=== PATIENT | female | born 1965 | race Caucasian/White ===

== ENCOUNTER → 2017-04-20 | Outpatient (CLI) | payer BC ==
--- NOTE | 2017-04-20 15:22 | RAD ---
DATE: 04/20/2017 EXAM: DIGITAL DIAGNOSTIC BILATERAL, BREAST LEFT HISTORY: Palpable nodule left breast 2 to 3:00 position since last week. Bilateral breast tenderness. COMPARISON: 05/22/2016 This study was interpreted with the benefit of Computerized Aided Detection (CAD). FINDINGS: Digital MLO and CC mammograms of both breasts were obtained. Comparison study is dated 05/22/2016. A radiopaque marker was placed in the upper outer quadrant of the left breast in the area where the patient feels a palpable abnormality. The breast parenchyma is heterogeneously dense which can obscure a lesion on mammography (breast density code C). No spiculated mass is seen. No malignant appearing calcification or area of architectural distortion is noted. Benign-appearing calcifications are seen within both breasts. On mammography in the area where the patient feels a palpable abnormality dense breast parenchyma is seen. A real-time ultrasound examination of this area was performed. Several simple cysts are seen scattered throughout the upper outer quadrant of the left breast from the 2 to 4:00 position. These measure 5 mm to 1 cm in size. No solid mass is seen. The larger simple cysts appear to correspond to the patient's palpable abnormality. IMPRESSION: BI-RADS Category 2 benign findings. There is no mammographic evidence of malignancy. Routine yearly screening mammography is recommended for follow-up. BI-RADS CATEGORY: 2 BENIGN FINDING(S) RECOMMENDED FOLLOW-UP: 12M 12 MONTH FOLLOW-UP PQRS compliance statement: Patient information was entered into a reminder system with a target due date 04/20/2018 for the next mammogram. Mammography is a sensitive method for finding small breast cancers, but it does not detect them all and is not a substitute for careful clinical examination. A negative mammogram does not negate a clinically suspicious finding and should not result in delay in biopsying a clinically suspicious abnormality. "Our facility is accredited by the [employer] Mammography Program."
== END | disposition home or self-care (01) ==
LOC: MAMMO 12:36
PROVIDERS: ATTEND Physician Assistant Medical
DX: N63 Unspecified lump in breast (principal)
CPT/HCPCS: 76641; G0204; 77066

== ENCOUNTER 2018-01-04 09:17 | Emergency (ER) | payer BC ==
[2018-01-04 09:48] LABS: BASO # 0.1 x10^3/uL (0.0-0.2); BASO % 1 % (0-3); EOS # 0.1 x10^3/uL (0.0-0.7); EOS % 1 % (0-3); HEMATOCRIT 43.6 % (36.0-47.0); HEMOGLOBIN 14.6 g/dL (12.0-15.5); LYMPH # 2.3 x10^3/uL (1.0-4.8); LYMPH % 32 % (24-48); MEAN CORPUSCULAR HEMOGLOBIN 31 pg (25-35); MEAN CORPUSCULAR HGB CONC 34 g/dL (31-37); MEAN CORPUSCULAR VOLUME 92 fL (79-100); MONO # 0.4 x10^3/uL (0.0-1.1); MONO % 6 % (0-9); NEUT # 4.3 x10^3uL (1.8-7.7); NEUT % 60 % (31-73); PLATELET COUNT 250 x10^3/uL (140-400); RED BLOOD COUNT 4.76 x10^6/uL (3.50-5.40); RED CELL DISTRIBUTION WIDTH 13.8 % (11.5-14.5); WHITE BLOOD COUNT 7.2 x10^3/uL (4.0-11.0)
[2018-01-04] MEDS ORDERED: ASPI325T8 PO (09:49)
--- NOTE | 2018-01-04 09:57 | RAD ---
EXAM: CHEST 1 VIEW History: Chest pain COMPARISON: None available TECHNIQUE: Single portable radiograph of the chest FINDINGS: The cardiac silhouette is unremarkable. Scattered calcified granulomas identified in the right lung base. The costophrenic sulci are clear and well demarcated. IMPRESSION: No radiographic evidence of an acute cardiopulmonary process.
[2018-01-04 10:06] LABS: ALBUMIN/GLOBULIN RATIO 1.1 (1.0-1.7); CREATININE 0.8 mg/dL (0.6-1.0); GFR 75.6; MAGNESIUM 2.2 mg/dL (1.8-2.4); POTASSIUM 4.1 mmol/L (3.5-5.1); TOTAL BILIRUBIN 0.5 mg/dL (0.2-1.0); TOTAL PROTEIN 7.8 g/dL (6.4-8.2)
[2018-01-04] MEDS ORDERED: KETOROLAC 30 MG/ML VIAL. ONE (10:38)
[2018-01-04] MEDS ORDERED: RANI150T6 PO (10:43)
--- NOTE | 2018-01-04 10:43 | PHYS DOC ---
Past History Past Medical History: Hypothyroid Smoking: Non-smoker Adult General Chief Complaint Chief Complaint: CHEST PAIN [facility] HPI 52-year-old female patient complaining of intermittent soda right or left-sided chest pain for the last 3 days that usually happen 3- 4 times a day as a sharp pain with radiation to left shoulder and her back and sometimes and earache and last for about one or 2 minutes. Patient comes of shortness of breath, palpitation, dizziness with the pain. Patient states she had another episode of chest pain while she was at work and had to adult aspirin. Patient denies any chest pain at this time. She states she had a cough and treated for bronchitis 3 weeks ago. Patient denies history of coronary artery disease, hypertension, dyslipidemia, diabetes mellitus, smoking. Patient had family history of coronary artery disease in her paternal grandfather. Review of Systems Review of Systems Constitutional: Denies fever or chills [] Eyes: Denies change in visual acuity, redness, or eye pain [] HENT: Denies nasal congestion or sore throat [] Respiratory: Reports cough and shortness of breath Cardiovascular: No additional information not addressed in HPI [] GI: Denies abdominal pain, nausea, vomiting, bloody stools or diarrhea [] : Denies dysuria or hematuria [] Musculoskeletal: Denies back pain or joint pain [] Integument: Denies rash or skin lesions [] Neurologic: Denies headache, focal weakness or sensory changes [] Endocrine: Denies polyuria or polydipsia [] All other systems were reviewed and found to be within normal limits, except as documented in this note. Allergies Allergies Allergies Coded Allergies Type Severity Reaction Last Updated Verified No Known Drug Allergies 01/04/18 No Physical Exam Physical Exam Constitutional: Well developed, well nourished, no acute distress, non-toxic appearance, anxious. [] HENT: Normocephalic, atraumatic, bilateral external ears normal, oropharynx moist, no oral exudates, nose normal. [] Eyes: PERRLA, EOMI, conjunctiva normal, no discharge. [] Neck: Normal range of motion, no tenderness, supple, no stridor. [] Cardiovascular:Heart rate regular rhythm, no murmur [] Lungs & Thorax: Bilateral breath sounds clear to auscultation [] Abdomen: Bowel sounds normal, soft, no tenderness, no masses, no pulsatile masses. [] Skin: Warm, dry, no erythema, no rash. [] Back: No tenderness, no CVA tenderness. [] Extremities: No tenderness, no cyanosis, no clubbing, ROM intact, no edema. [] Neurologic: Alert and oriented X 3, normal motor function, normal sensory function, no focal deficits noted. [] Psychologic: Affect normal, judgement normal, mood normal. [] Current Patient Data Lab Results Laboratory Tests Test 01/04/18 09:30 White Blood Count 7.2 x10^3/uL (4.0-11.0) Red Blood Count 4.76 x10^6/uL (3.50-5.40) Hemoglobin 14.6 g/dL (12.0-15.5) Hematocrit 43.6 % (36.0-47.0) Mean Corpuscular Volume 92 fL (79-100) Mean Corpuscular Hemoglobin 31 pg (25-35) Mean Corpuscular Hemoglobin Concent 34 g/dL (31-37) Red Cell Distribution Width 13.8 % (11.5-14.5) Platelet Count 250 x10^3/uL (140-400) Neutrophils (%) (Auto) 60 % (31-73) Lymphocytes (%) (Auto) 32 % (24-48) Monocytes (%) (Auto) 6 % (0-9) Eosinophils (%) (Auto) 1 % (0-3) Basophils (%) (Auto) 1 % (0-3) Neutrophils # (Auto) 4.3 x10^3uL (1.8-7.7) Lymphocytes # (Auto) 2.3 x10^3/uL (1.0-4.8) Monocytes # (Auto) 0.4 x10^3/uL (0.0-1.1) Eosinophils # (Auto) 0.1 x10^3/uL (0.0-0.7) Basophils # (Auto) 0.1 x10^3/uL (0.0-0.2) Sodium Level 140 mmol/L (136-145) Potassium Level 4.1 mmol/L (3.5-5.1) Chloride Level 101 mmol/L (98-107) Carbon Dioxide Level 34 mmol/L (21-32) H Anion Gap 5 (6-14) L Blood Urea Nitrogen 14 mg/dL (7-20) Creatinine 0.8 mg/dL (0.6-1.0) Estimated GFR (Cockcroft-Gault) 75.6 BUN/Creatinine Ratio 18 (6-20) Glucose Level 108 mg/dL (70-99) H Calcium Level 10.0 mg/dL (8.5-10.1) Magnesium Level 2.2 mg/dL (1.8-2.4) Total Bilirubin 0.5 mg/dL (0.2-1.0) Aspartate Amino Transferase (AST) 23 U/L (15-37) Alanine Aminotransferase (ALT) 29 U/L (14-59) Alkaline Phosphatase 115 U/L (46-116) Creatine Kinase Pending Creatine Kinase MB (Mass) Pending Creatine Kinase MB Relative Index Pending Troponin I Quantitative < 0.017 ng/mL (0-0.055) OB-Wxv-Q-Type Natriuretic Peptide 63 pg/mL (0-124) Total Protein 7.8 g/dL (6.4-8.2) Albumin 4.0 g/dL (3.4-5.0) Albumin/Globulin Ratio 1.1 (1.0-1.7) EKG EKG EKG interpreted by me. EKG at 0934 showed normal sinus rhythm at rate of 75, no acute distress and T wave abnormality, poor R-wave progress in anteroseptal the[ ] Radiology/Procedures Radiology/Procedures [] [place] [address] IMAGING REPORT Signed PATIENT: DARLEEN BOYKIN ACCOUNT: [id number] : 1965 LOCATION: ER AGE: 52 SEX: F EXAM STATUS: REG ER ORD. PHYSICIAN: GABY FREDERICK MD REASON: chest pain PROCEDURE: PORTABLE CHEST 1V EXAM: CHEST 1 VIEW History: Chest pain COMPARISON: None available TECHNIQUE: Single portable radiograph of the chest FINDINGS: The cardiac silhouette is unremarkable. Scattered calcified granulomas identified in the right lung base. The costophrenic sulci are clear and well demarcated. IMPRESSION: No radiographic evidence of an acute cardiopulmonary process. DICTATED AND SIGNED BY: PHILIP CONTE MD DATE: 01/04/18 0953 CC: GABY FREDERICK MD; DALE PEREZ ~ Course & Med Decision Making Course & Med Decision Making Pertinent Labs and Imaging studies reviewed. (See chart for details) Evaluation of patient in ER showed 52-year-old female patient with complaining of intermittent episodes of right or left-sided chest pain for the last 3 days that last for about one or 2 minutes and associated with shortness of breath and palpitations and dizziness and anxiety. Patient had unremarkable labs except for mild elevation of CO2 with holding her breast. EKG did not show acute changes. Cardiac enzymes was negative. Patient did not have chest pain at arrival to ER but later on complaining of one episode of chest pain and treated with Toradol and felt better. Plan discharge patient home with diagnosis of noncardiac chest pain and patient instructed to follow with her primary care physician in 2-3 days for further evaluation. Plan to give prescription for ranitidine. discharge: I've spoken with the patient and/or caregivers. I've explained the patient's condition, diagnosis and treatment plan based on information available to me at this time. I've answered the patient's and/or caregivers questions and addressed any concerns. The patient and/or caregivers have a good understanding the patient's diagnosis, condition and treatment plan as can be expected at this point. Vital signs have been stabilized. The patient's condition is stable for discharge from the emergency department. The patient will pursue further outpatient evaluation with her primary care provider or other designated consulting physician as outlined in the discharge instructions. Patient and/or caregivers are agreeable to this plan of care and follow-up instructions have been explained in detail. The patient and/or caregivers have received these instructions in written format and expressed understanding of these discharge instructions. The patient and her caregivers are aware that if any significant change in condition or worsening of symptoms should prompt him to immediately return to this of the closest emergency department. If an emergent department is not readily available I would encourage him to call 911. Radhika Disclaimer Ambrosioon Disclaimer This electronic medical record was generated, in whole or in part, using a voice recognition dictation system. Departure Departure: Impression: Primary Impression: Non-cardiac chest pain Disposition: HOME, SELF-CARE (At 1050) Condition: IMPROVED Referrals: DALE PEREZ (PCP) Patient Instructions: Chest Pain (Nonspecific) Additional Instructions: Drink plenty of liquids Follow-up with your primary care physician in 2-3 days Return to ER if not getting better Scripts Ranitidine Hcl (ZANTAC) 150 Mg Tablet 1 TAB PO BID, #30 TAB 3 Refills Prov: GABY FREDERICK MD 01/04/18 GABY FREDERICK MD Jan 04, 2018 10:43
[2018-01-04 10:53] VITALS: BP 116/88
[2018-01-04] MEDS ORDERED: KETOROLAC 30 MG/ML VIAL. IV ONE (11:15)
--- NOTE | 2018-01-04 13:52 | EKG ---
[address] [address] Test Date: 2018-01-04 Test Time: 09:34:08 Pat Name: DARLEEN BOYKIN Department: Room: Gender: F Rate Examiner: ELLE : 1965 Requested By: GABY FREDERICK Order Number: [id number] Reading MD: Measurements Intervals [place] Rate: 75 P: 42 MN: 134 QRS: 42 QRSD: 86 T: 46 QT: 390 QTc: 438 Interpretive Statements SINUS RHYTHM QRS(T) CONTOUR ABNORMALITY CONSIDER ANTEROSEPTAL MYOCARDIAL DAMAGE POSSIBLY ABNORMAL ECG RI6.01 No previous ECG available for comparison
== END 2018-01-04 10:54 | disposition home or self-care (01) ==
LOC: ER 09:17
DX: R07.89 Other chest pain (principal); E03.9 Hypothyroidism, unspecified
CPT/HCPCS: 36415; 71045; 80053; 82553; 83735; 83880; 84484; 85025; 93005; 96374; 99285; J1885

== ENCOUNTER → 2019-03-24 | Outpatient (CLI) | payer BC ==
[~2019-03-24] MED LIST: ASPI325T8 PO; RANI150T21 PO
[2019-03-24 09:13] LABS: BACTERIA,URINE 0 /HPF (0-FEW); BILIRUBIN,URINE NEG (NEG); CLARITY,URINE CLEAR; COLOR,URINE COLORLESS; GLUCOSE,URINE NEG (NEG); NITRITE,URINE NEG (NEG); RBC,URINE 0 /HPF (0-2); SQUAMOUS EPITHELIAL CELL,UR OCC /LPF; UROBILINOGEN,URINE 0.2 mg/dL (0.2 mg/dL); WBC,URINE 0 /HPF (0-4)
[2019-03-24 13:53] LABS: FREE T4 1.09 ng/dL (0.76-1.46); THYROID STIM HORMONE (TSH) 2.628 uIU/mL (0.358-3.740)
== END | disposition home or self-care (01) ==
LOC: LAB 07:59
PROVIDERS: ATTEND Registered Nurse
DX: E78.00 Pure hypercholesterolemia, unspecified (principal); E03.9 Hypothyroidism, unspecified; R30.0 Dysuria
CPT/HCPCS: 80061; 81001; 84439; 84443

== ENCOUNTER → 2020-01-19 | Outpatient (CLI) | payer BC ==
[~2020-01-19] MED LIST changes: +RANI-376 PO; -RANI150T21 PO
[2020-01-19 08:31] LABS: BACTERIA,URINE MOD /HPF (0-FEW); BILIRUBIN,URINE NEG (NEG); CLARITY,URINE HAZY; COLOR,URINE STRAW; GLUCOSE,URINE NEG (NEG); NITRITE,URINE NEG (NEG); SQUAMOUS EPITHELIAL CELL,UR OCC /LPF; UROBILINOGEN,URINE 0.2 mg/dL (0.2 mg/dL)
== END ==
LOC: LAB 07:41
PROVIDERS: ATTEND Urology
DX: B96.1 Klebsiella pneumoniae [K. pneumoniae] as the cause of diseases classified elsewhere (principal); R82.90 Unspecified abnormal findings in urine
CPT/HCPCS: 81001; 87086; 87186

== ENCOUNTER → 2020-01-30 | Outpatient (CLI) | payer BC ==
--- NOTE | 2020-01-30 08:48 | RAD ---
Renal ultrasound 01/30/2020 CLINICAL HISTORY: Chronic UTIs. Urge Incontinence. TECHNIQUE: A real-time ultrasound examination of both kidneys and the urinary bladder was performed. Multiple images were obtained. FINDINGS: Both kidneys are within normal limits in size. The right kidney measures 10.6 cm in length. The left kidney measures 11.1 cm in length. Mild right hydronephrosis is seen. The proximal right ureter is mildly dilated. It is difficult to follow into the lower abdomen/pelvis. No abnormality of the left kidney is noted.The urinary bladder is distended with urine. No abnormality is seen. IMPRESSION: Mild right hydronephrosis. Electronically signed by: Jermain Colmenares MD (01/30/2020 8:45 AM) [id number]
== END | disposition home or self-care (01) ==
LOC: US 08:07
PROVIDERS: ATTEND Urology
DX: N13.30 Unspecified hydronephrosis (principal)
CPT/HCPCS: 76770

== ENCOUNTER → 2020-10-12 | Outpatient (CLI) | payer BC ==
--- NOTE | 2020-10-12 18:06 | RAD ---
EXAM: RIBS LEFT AND PA CHEST 10/12/2020 12:00 AM CLINICAL INDICATION:Left rib pain under breast, fell one week ago COMPARISON:Chest radiograph 01/04/2018 TECHNIQUE:AP and oblique views of the left RIBS, PA view the chest FINDINGS:Subtle cortical offset of the anterior left eighth rib seen on oblique view is suspicious for a nondisplaced fracture. The cardiomediastinal silhouette is normal. Lungs are well-expanded. A calcified granuloma in the right lung is unchanged. No pleural effusion or pneumothorax. IMPRESSION:Suspected nondisplaced anterior left eighth rib fracture. No pleural effusion or pneumothorax. Electronically signed by: Chloé Franklin MD (10/12/2020 6:02 PM) [id number]
== END ==
LOC: DXRAD 09:08
PROVIDERS: ATTEND Physician Assistant Medical
DX: J84.10 Pulmonary fibrosis, unspecified (principal); J98.4 Other disorders of lung
CPT/HCPCS: 71101